=== PATIENT | female | born 1940 | race Caucasian/White ===

== ENCOUNTER 2019-07-06 08:49 | Outpatient (CLI) | payer MEDICARE, SELFPAY ==
[2019-07-14 20:57] LABS: Calprotectin, Stool 76.6 mcg/g
== END 2019-07-06 08:50 | disposition home or self-care (01) ==
LOC: ANHLAB 09:02
PROVIDERS: PCP Internal Medicine; Visit Provider Nurse Practitioner
DX: I10 Essential (primary) hypertension (principal); E78.00 Pure hypercholesterolemia, unspecified; E78.5 Hyperlipidemia, unspecified; E55.9 Vitamin D deficiency, unspecified
CPT/HCPCS: 83993

== ENCOUNTER 2019-10-02 12:47 | Outpatient (CLI) | payer MEDICARE, SELFPAY ==
[2019-10-02 13:16] LABS: Add Urine Microscopic? NO; Appearance Urine Clear (Clear); Bilirubin Urine Negative (Negative); Blood Urine Negative (Negative); Color Urine Yellow (Yellow); Glucose Urine UA Negative (Negative); Ketones Urine Negative (Negative); Leukocyte Esterase Ur Negative LEU/UL (Negative); Nitrate Urine Negative (Negative); Protein Urine Negative (Negative); Urobilinogen Urine Negative mg/dL (<2.0)
== END 2019-10-02 12:48 | disposition home or self-care (01) ==
PROVIDERS: PCP Internal Medicine; Visit Provider Internal Medicine
DX: R31.9 Hematuria, unspecified (principal)
CPT/HCPCS: 81003

== ENCOUNTER 2019-10-23 00:24 | Outpatient (CLI) | payer MEDICARE, SELFPAY ==
[2019-10-23 20:58] LABS: SARS-CoV-2 RNA PCR Negative
== END 2019-10-23 00:25 | disposition home or self-care (01) ==
LOC: ANHCOVIDDT 00:24
PROVIDERS: PCP Internal Medicine; Visit Provider Internal Medicine Gastroenterology
DX: Z01.818 Encounter for other preprocedural examination (principal); Z11.59 Encounter for screening for other viral diseases
CPT/HCPCS: 87635; C9803; U0003

== ENCOUNTER 2019-10-26 01:27 | Day surgery (SDC) | payer MEDICARE, SELFPAY ==
[2019-07-10 14:38] VITALS: BMI 24.4
[2019-10-21 11:10] VITALS: BMI 23.4
--- NOTE | 2019-10-26 08:52 | WPDANESEPPF ---
Anes - Initial Pre Proc Eval Procedure: Operation Date: 10/26/19 12:00 Proposed Procedures p Flexible Sigmoidoscopy - Adrian Adam DO Date/Time: 10/26/19 08:52 Surgeon: Adrian Adam DO Pre Op Diagnosis: ulcerative proctitis Patient Data Age: 79 Gender: F Height: 1.65 m Weight: 64 kg Allergies Allergy/AdvReac Type Severity Reaction Status Date / Time No Known Allergies Allergy Verified 10/21/19 11:15 Home Medications Medication Instructions Recorded Confirmed Type calcium carbonate-vitamin D3 1 tablet PO DAILY 03/12/19 07/10/19 History [Calcium 500 + D] cholecalciferol (vitamin D3) 1,000 unit PO DAILY 03/12/19 07/10/19 History [Vitamin D3] omega 0-tmj-fqd-fish oil [Fish Oil] 1 cap PO DAILY 03/12/19 07/10/19 History ropinirole 0.25 mg PO PRN PRN 03/12/19 07/10/19 History folic acid 1 mg PO DAILY #30 tablet 03/16/19 07/10/19 Rx mesalamine 4.8 gm PO DAILY #120 tablet 03/16/19 07/10/19 Rx multivitamin 1 tablet PO DAILY #90 tablet 03/16/19 07/10/19 Rx famotidine 20 mg tablet 20 mg PO BID #180 tablet 05/01/19 07/10/19 Rx brimonidine-timolol [Combigan] 0.2 - 0.5 drp OPHTHALMIC (EYE) 07/10/19 07/10/19 History DAILY lactobacillus combination no.8 3,000 mmu cells PO DAILY 07/10/19 07/10/19 History [Adult Probiotic] magnesium 250 mg PO DAILY 07/10/19 07/10/19 History Patient hx anesthesia problems: none Family hx anesthesia problems: none PMFSH Past Medical History Medical History (Updated 10/26/19 @ 08:53 by Tevin Diallo MD) Arthritis of shoulder Essential (primary) hypertension GERD (gastroesophageal reflux disease) Glaucoma Hematochezia Hx of adenomatous colonic polyps Osteopenia Overactive bladder Pure hypercholesterolemia Restless leg syndrome Right rotator cuff tendinitis Ulcerative proctitis Surgical History Surgical History History of partial hysterectomy Hx of appendectomy Hx of cholecystectomy Hx of colonoscopy Social History Social History Smoking status: Never smoker Alcohol intake: current Substance use: never Gender identity (if verbalized by the patient): Female Anes - Eval Final PreProcedure Day of Procedure 10/26/19 08:52 Patient weight: normal Heart: regular rate and rhythm Lungs: clear to auscultation and normal air movement Airway: Mallampati scale class II Neurological: alert and oriented Last oral intake: >/= 8 hours ASA classification: III Emergent: no Anesthetic plan: proceed Anesthesia type and monitoring: general GIVS Informed Consent: The patient's anesthetic plan and its attendant risks and benefits were discussed with the patient/family/POA. Questions were solicited and answers provided to the satisfaction of the patient/family/POA.
[2019-10-26 10:31] VITALS: BP 145/66; PULSE 66; RESP 18; TEMP 37.2; O2SAT 97
--- NOTE | 2019-10-26 12:15 | WPDGICN ---
GI Consult Note Consult date/time: 10/26/19 12:15 HPI: Reason for visit flexible sigmoidoscopy. This very pleasant lady seen in consultation request of the primary. Impression: Your very pleasant lady with a history of hematochezia and mucus per rectum. Previous colonoscopy revealed evidence of ulcerative colitis involving the sigmoid colon and rectum. She is here for follow-up flexible sigmoidoscopy. History adenomatous colon polyps. Per past medical history. Recommendation: Will proceed to flexible sigmoidoscopy. History: This very pleasant lady was evaluated previously with a colonoscopy. At that time she was having hematochezia and mucus per rectum. Colonoscopy revealed evidence of inflammatory changes of the sigmoid colon and rectum. Biopsies revealed changes compatible with ulcerative colitis. The patient was treated with oral mesalamine. Her symptoms improved. She has had a little hair loss, however her review of systems relatively unremarkable this time. She is here for flexible sigmoidoscopy to assess Healing. Physical examination: General: very pleasant patient in no acute distress. HEENT: Head was normocephalic sclerae is clear mouth without masses neck was supple. Heart: Rate rhythm regular without S3 or S4. Lungs: CTA. Abdomen: Soft with no guarding or rigidity. Bowel sounds were active. Neurologic: Cranial nerves 2 through 12 intact. No focal defects. No clonus. Musculoskeletal system: Revealed no joint tenderness or swelling no muscle atrophy. Extremities: Reveal no significant edema. Skin: Warm and dry with normal turgor. Mental status: intact. Patient is alert and oriented. Review of Systems Review of Systems: All systems reviewed & are unremarkable except as noted in HPI and below PMFSH Past Medical History Medical History (Updated 10/26/19 @ 11:56 by Adrian Adam DO) Arthritis of shoulder Essential (primary) hypertension GERD (gastroesophageal reflux disease) Glaucoma HLD (hyperlipidemia) Hx of adenomatous colonic polyps Low bone mass Overactive bladder RLS (restless legs syndrome) Ulcerative colitis Surgical History Surgical History History of partial hysterectomy Hx of appendectomy Hx of cholecystectomy Hx of colonoscopy Social History Social History Smoking status: Never smoker Alcohol intake: current Substance use: never Gender identity (if verbalized by the patient): Female Meds Home Medications and Allergies Home Medications Medication Instructions Recorded Confirmed Type calcium carbonate-vitamin D3 1 tablet PO DAILY 03/12/19 07/10/19 History [Calcium 500 + D] cholecalciferol (vitamin D3) 1,000 unit PO DAILY 03/12/19 07/10/19 History [Vitamin D3] omega 8-mpm-rae-fish oil [Fish Oil] 1 cap PO DAILY 03/12/19 07/10/19 History ropinirole 0.25 mg PO PRN PRN 03/12/19 07/10/19 History folic acid 1 mg PO DAILY #30 tablet 03/16/19 07/10/19 Rx mesalamine 4.8 gm PO DAILY #120 tablet 03/16/19 07/10/19 Rx multivitamin 1 tablet PO DAILY #90 tablet 03/16/19 07/10/19 Rx famotidine 20 mg tablet 20 mg PO BID #180 tablet 05/01/19 07/10/19 Rx brimonidine-timolol [Combigan] 0.2 - 0.5 drp OPHTHALMIC (EYE) 07/10/19 07/10/19 History DAILY lactobacillus combination no.8 3,000 mmu cells PO DAILY 07/10/19 07/10/19 History [Adult Probiotic] magnesium 250 mg PO DAILY 07/10/19 07/10/19 History Allergies Allergy/AdvReac Type Severity Reaction Status Date / Time No Known Allergies Allergy Verified 10/21/19 11:15 Vital Signs Vital Signs - 24 hr 10/26/19 10:31 Temperature 37.2 C Pulse Rate 66 Respiratory Rate 18 Blood Pressure 145/66 H Pulse Oximetry 97
[2019-10-26] MEDS: LACTATED RINGERS 1,000 ML 150 ML IV CONT (12:17)
[2019-10-26 12:35] VITALS: BP 112/67; PULSE 59; RESP 22; O2SAT 100
[2019-10-26 12:45] VITALS: BP 134/77; PULSE 58; RESP 22; O2SAT 100
[2019-10-26 12:55] VITALS: BP 156/82; PULSE 54; RESP 13; O2SAT 98
== END 2019-10-26 13:11 | disposition home or self-care (01) ==
PROVIDERS: PCP Internal Medicine; Visit Provider Internal Medicine Gastroenterology
PROC: 0DJD8ZZ Inspection of Lower Intestinal Tract, Via Natural or Artificial Opening Endoscopic (ICD-10-PCS; CPT 45330; principal; 2019-10-26 12:00)
DX: K51.90 Ulcerative colitis, unspecified, without complications (principal); E78.00 Pure hypercholesterolemia, unspecified; I10 Essential (primary) hypertension; K21.9 Gastro-esophageal reflux disease without esophagitis; H40.9 Unspecified glaucoma; G25.81 Restless legs syndrome
CPT/HCPCS: 45380; 88305; J7120

== ENCOUNTER 2019-11-17 14:04 | Outpatient (CLI) | payer MEDICARE, SELFPAY ==
--- NOTE | ~2019-11-17 | MM_ITS ---
EXAMINATION: MM screening [facility] BI w yoshi HISTORY: Screening mammogram TECHNIQUE: Craniocaudal and mediolateral oblique 3-D tomosynthesis images were obtained and synthetic 2-D images were generated. CAD analysis was submitted and interpreted. COMPARISON: Comparison to multiple prior studies sequentially, with oldest reviewed study dated 10/26. BREAST PARENCHYMAL COMPOSITION: There are scattered areas of fibroglandular density. FINDINGS: There is no evidence of suspicious mass, calcification, or architectural distortion to sugg est malignancy in either breast. There has been no suspicious interval change. IMPRESSION: 1. No mammographic evidence of malignancy. 2. Recommend routine screening mammography in one year. BI-RADS Category 1: Negative Reviewed, dictated and finalized at location A.
== END 2019-11-17 14:05 | disposition home or self-care (01) ==
LOC: ANHIMG 14:06
PROVIDERS: PCP Internal Medicine; Visit Provider Internal Medicine
DX: Z12.31 Encounter for screening mammogram for malignant neoplasm of breast (principal)
CPT/HCPCS: 77063; 77067

== ENCOUNTER 2020-01-19 09:23 | Outpatient (RCR) | payer MEDICARE, SELFPAY ==
[2020-01-19 09:36] VITALS: BMI 24.1
== END 2020-04-07 12:52 | disposition home or self-care (01) ==
LOC: ANHDMC 09:23
PROVIDERS: PCP Internal Medicine; Visit Provider Internal Medicine
DX: K52.9 Noninfective gastroenteritis and colitis, unspecified (principal); Z71.3 Dietary counseling and surveillance
CPT/HCPCS: 97802

== ENCOUNTER 2020-05-25 12:44 | Outpatient (CLI) | payer MEDICARE, SELFPAY ==
[2020-06-01 20:51] LABS: Calprotectin, Stool 54 mcg/g
== END 2020-05-25 12:45 | disposition home or self-care (01) ==
PROVIDERS: Family Provider Internal Medicine; PCP Internal Medicine; Visit Provider Internal Medicine Gastroenterology
DX: K52.9 Noninfective gastroenteritis and colitis, unspecified (principal)
CPT/HCPCS: 83993

== ENCOUNTER 2020-12-07 08:18 | Outpatient (CLI) | payer MEDICARE, SELFPAY ==
[2020-12-13 18:41] LABS: Calprotectin, Stool 72 mcg/g
== END 2020-12-07 08:19 | disposition home or self-care (01) ==
LOC: ANHLAB 08:22
PROVIDERS: PCP Internal Medicine; Visit Provider Physician Assistant Medical
DX: K51.20 Ulcerative (chronic) proctitis without complications (principal)
CPT/HCPCS: 83993

== ENCOUNTER 2020-12-07 09:16 | Outpatient (CLI) | payer MEDICARE, SELFPAY ==
--- NOTE | ~2020-12-07 | DEXA_ITS ---
Bone Density Report Name: Eli Rodriguez Age: 80 Sex: Female Ethnicity: White Date of : 1940 Indication: osteopenia; height loss; inflammatory bowel disease; hysterectomy; postmenopausal Referring Provider: ANNETTE BLANKENSHIP Study: Bone densitometry was performed. Exam Date: December 07, 2020 Accession number: [id number] Bone Density: Region BMD T-score Z-score Classification AP Spine (L1-L4) 0.906 -1.3 1.5 Osteopenia Femoral Neck (Left) 0.545 -2.7 -0.3 Osteoporosis Total Hip (Left) 0.691 -2.1 0.1 Osteopenia Total Hip Bilateral Avg 0.715 -1.9 0.3 Osteopenia Femoral Neck (Right) 0.593 -2.3 0.1 Osteopenia Total Hip (Right) 0.738 -1.7 0.5 Osteopenia World Health Organization criteria for BMD impression classify patients as: Normal (T-score at or above -1.0), Osteopenia (T-score between -1.0 and -2.5), or Osteoporosis (T-score at or below -2.5). 10-year Fracture Risk: FRAX not reported because: Some T-score for Spine Total or Hip Total or Femoral Neck at or below -2.5 Previous Exams: Region Exam Age BMD T-score BMD Change BMD Change Date g/cm2 vs Baseline vs Previous AP Spine(L1-L4) 12/07/2020 80 0.906 -1.3 0.017(1.9%)# 0.005(0.6%) 11/06/2018 78 0.901 -1.3 0.011(1.3%)# 0.015(1.7%)# 10/22/2012 72 0.886 -1.5 -0.004(-0.4%)# 0.023(2.7%)# 10/10/2010 70 0.863 -1.7 -0.027(-3.0%)* 0.010(1.1%) 09/06/2008 68 0.853 -1.8 -0.037(-4.1%)* -0.037(-4.1%)* 09/04/2006 66 0.890 -1.4 Total Hip(Left) 12/07/2020 80 0.691 -2.1 -0.115(-14.3%) -0.063(-8.4%)* 11/06/2018 78 0.754 -1.5 -0.052(-6.5%)# -0.200(-21.0%) 11/02/2016 76 0.955 0.1 0.148(18.4%)# 0.188(24.6%)* 10/27/2014 74 0.766 -1.4 -0.040(-5.0%)# 0.014(1.9%)# 10/22/2012 72 0.752 -1.6 -0.054(-6.7%)# -0.030(-3.9%)# 10/10/2010 70 0.783 -1.3 -0.024(-3.0%) -0.016(-2.0%) 09/06/2008 68 0.799 -1.2 -0.008(-1.0%) -0.008(-1.0%) 09/04/2006 66 0.806 -1.1 Total Hip(Right) 12/07/2020 80 0.738 -1.7 -0.082(-10.0%) -0.033(-4.3%)* 11/06/2018 78 0.771 -1.4 -0.049(-5.9%)# -0.115(-13.0%) 11/02/2016 76 0.886 -0.5 0.066(8.1%)# 0.107(13.7%)* 10/27/2014 74 0.779 -1.3 -0.040(-4.9%)# -0.036(-4.4%)# 10/22/2012 72 0.815 -1.0 -0.005(-0.6%)# 0.013(1.7%)# 10/10/2010 70 0.802 -1.2 -0.018(-2.2%) -0.014(-1.7%) 09/06/2008 68 0.816 -1.0 -0.004(-0.5%) -0.004(-0.5%) 09/04/2006 66 0.820 -1.0 *Denotes significance at 95% confidence level, LSC for AP Spine = 0.022 g/cm2, LSC for Total Hip = 0.027 g/cm2 Clin
--- NOTE | ~2020-12-07 | MM_ITS ---
EXAMINATION: MM screening [facility] BI w yoshi HISTORY: Screening TECHNIQUE: Craniocaudal and mediolateral oblique 3-D tomosynthesis images were obtained and synthetic 2-D images were generated. CAD analysis was submitted and interpreted. COMPARISON: Comparison to multiple prior studies sequentially, with oldest reviewed study dated 04/2014. BREAST PARENCHYMAL COMPOSITION: There are scattered areas of fibroglandular density. FINDINGS: There is no evidence of suspicious mass, calcification, or architectural distortion to sugg est malignancy in either breast. There has been no suspicious interval change. IMPRESSION: 1. No mammographic evidence of malignancy. 2. Recommend routine screening mammography in one year. BI-RADS Category 1: Negative Reviewed, dictated and finalized at location A.
== END 2020-12-07 09:17 | disposition home or self-care (01) ==
LOC: ANHIMG 09:17
PROVIDERS: PCP Internal Medicine; Visit Provider Internal Medicine
DX: Z12.31 Encounter for screening mammogram for malignant neoplasm of breast (principal); Z78.0 Asymptomatic menopausal state; M85.89 Other specified disorders of bone density and structure, multiple sites; M81.0 Age-related osteoporosis without current pathological fracture
CPT/HCPCS: 77063; 77067; 77080; 83993

== ENCOUNTER 2020-12-20 09:14 | Outpatient (CLI) | payer MEDICARE, SELFPAY ==
--- NOTE | ~2020-12-20 | CT_ITS ---
EXAMINATION: CT abdomen pelvis wo/w con EXAM DATE: 12/20/2020 10:13 INDICATION: HX of gross hematuria. History of bladder infections. TECHNIQUE: Spiral CT of the abdomen and pelvis was performed without contrast. The patient was then injected with small bolus intravenous Omnipaque 350, followed by delay of approximately 10 minutes to allow collecting system to opacify. A post contrast scan abdomen and pelvis was performed during inj ection of remaining contrast. A total of 130 cc intravenous contrast was administered. The dose-jasmin th product (DLP) for this examination was 753.14 mGy-cm. The exposure was tailored according to hamida ent size (auto mA exposure control), and iterative reconstruction (ASIR) was used as additional dose reduction technique. There is no prior study for comparison. FINDINGS: There is no hydronephrosis or nephrolithiasis. The kidneys enhance symmetrically. There a re no suspicious renal lesions. The calyces and opacified portions of ureters are unremarkable, with out filling defects or focal suspicious strictures. The bladder is unremarkable. The uterus is not identified and has likely been surgically resected. The liver, spleen, adrenal glands and pancreas are unremarkable. Gallbladder not identified, patient likely has had cholecystectomy. There is no retroperitoneal or pelvic lymphadenopathy. There is m ild to moderate scattered arteriosclerotic disease. Small left inguinal fat-containing hernia. The appendix is not positively visualized. There is no pericecal inflammatory change to suggest appe ndicitis. There is extensive sigmoid predominant colonic diverticulosis. There is no adjacent inflam matory change to suggest diverticulitis. The stomach and small bowel are unremarkable. There is expe cted amount of colonic stool. No free intraperitoneal gas. The heart is normal in size. There ar e no pericardial or pleural effusions. The lung bases are unremarkable. Mild thoracolumbar levoscol iosis. There are no osteoblastic or osteolytic lesions identified. IMPRESSION: 1. No suspicious genitourinary findings. 2. Colonic diverticulosis. 3. Small left inguinal hernia. Reviewed, dictated and finalized at location A.
[2020-12-20 09:55] LABS: Estimated Glomerular Filt Rate > 60
== END 2020-12-20 09:15 | disposition home or self-care (01) ==
PROVIDERS: PCP Internal Medicine; Visit Provider Nurse Practitioner Family
DX: R31.9 Hematuria, unspecified (principal); Z87.448 Personal history of other diseases of urinary system; K57.30 Diverticulosis of large intestine without perforation or abscess without bleeding; K40.90 Unilateral inguinal hernia, without obstruction or gangrene, not specified as recurrent
CPT/HCPCS: 74178; Q9967

== ENCOUNTER 2021-12-16 09:00 | Outpatient (CLI) | payer MEDICARE, SELFPAY ==
--- NOTE | ~2021-12-16 | MM_ITS ---
EXAMINATION: MM screening [facility] BI w yoshi HISTORY: Screening TECHNIQUE: Craniocaudal and mediolateral oblique 3-D tomosynthesis images were obtained and synthetic 2-D images were generated. CAD analysis was submitted and interpreted. COMPARISON: Comparison to multiple prior studies sequentially, with oldest reviewed study dated 08/2015. BREAST PARENCHYMAL COMPOSITION: There are scattered areas of fibroglandular density. FINDINGS: There is no evidence of suspicious mass, calcification, or architectural distortion to sugg est malignancy in either breast. There has been no suspicious interval change. IMPRESSION: 1. No mammographic evidence of malignancy. 2. Recommend routine screening mammography in one year. BI-RADS Category 1: Negative Reviewed, dictated and finalized at location A.
== END 2021-12-16 09:01 | disposition home or self-care (01) ==
PROVIDERS: PCP Internal Medicine; Visit Provider Internal Medicine
DX: Z12.31 Encounter for screening mammogram for malignant neoplasm of breast (principal)
CPT/HCPCS: 77063; 77067

== ENCOUNTER 2024-01-14 08:37 | Outpatient (RCR) | payer MEDICARE, SELFPAY ==
--- NOTE | 2024-01-14 09:53 | OPREHPOC ---
Outpatient Therapy Plan of Care This is a Multidisciplinary Plan of Care that may contain components documented by all disciplines (PT, OT, and ST.) PT Problem 1 PT Problem #1 Knowledge Deficit PT Goal 1 Goal / Goal Update 1. independent and compliant with HEP Target Visit 6 PT Problem 2 PT Problem #2 Impaired Strength PT Goal 1 Goal / Goal Update 1. 5/5 bilateral hip strength 2. 5/5 bilateral ankle strength Target Visit 12 PT Problem 3 PT Problem #3 Impaired Balance PT Goal 1 Goal / Goal Update 1. tinetti to display moderate fall risk or less 2. TUG to be completed in under 15 seconds 3. 5x sit to stand to be completed in under 15 seconds with or without UE's to push up from sitting Target Visit 12 PT Problem 4 PT Problem #4 Impaired Gait PT Goal 1 Goal / Goal Update 1. patient to ambulate with step through bilateral LE mechanics, complete foot clearance, and use of appropriate AD at all times. Target Visit 12 PT Problem 5 PT Problem #5 Impaired Functional Mobil PT Goal 1 Goal / Goal Update 1. patient to report confidence in home and community activities to improve quality of life. Target Visit 12
--- NOTE | 2024-01-14 09:54 | PTOPEVAL1 ---
Assessment and note entered by JT File, PT Evaluation Information Assessment Status Evaluation Diagnosis frequent falls Other ICD-10 Condition Codes ( R29.6 PT) Onset 12/03/23 Subjective Information patient reports she has scoliosis and walks different due to this. she reports she has not really had a falls, but fears she could have a fall due to her difficulty walking. she reports she feels she could stand to get stronger. she reports she has had some loss of balance. she reports when she loses her balance she is typically walking and sways/veers off to the side. she reports she does use a cane. she reports she uses the cane for community ambulation. she reports she does not use the cane in the home, but will use furniture to stabilize herself. she reports she does not have much pain, except for when doing repetitive activities such as vacuuming . Reported Pain Level Pain Score 0: Self Report Assessment PT Clinical Summary mrs. shearer is a pleasant 83 yo woman who presents to skilled PT services for evaluation and treatment of weakness and fear of falling. she has not yet had any falls, but reports she has had losses of balance that have nearly led to falls. she presents today with proximal LE weakness, abnormal gait mechanics, and high fall risk per the tinetti/5x sit to stand/TUG. she would benefit from continued skilled PT services to improve her objective/functional deficits and decrease her chance of falling and injury with home and community activities. Plan of Care Interventions Gait Training,Neuro Re-education,Patient/Caregiver Educati,Therapeutic Activities,Therapeutic Exercise PT Services Indicated Yes Treatment Frequency and 3x weekly for 12 visits Duration These treatments will address the objective and functional deficits as defined above. The patient will be advanced safely and appropriately in order for the patient to progress towards his/her prior level of function. Additional exercises will be introduced and as well as a comprehensive home exercise program upon discharge, if needed, ?to ensure carryover of functional gains achieved in the clinic. This treatment plan has been reviewed and agreement upon by the patient.
--- NOTE | 2024-02-19 11:56 | OPREHPOC ---
Outpatient Therapy Plan of Care This is a Multidisciplinary Plan of Care that may contain components documented by all disciplines (PT, OT, and ST.) PT Problem 1 PT Problem #1 Knowledge Deficit PT Goal 1 Goal / Goal Update 1. independent and compliant with HEP Target Visit 6 Progress Met PT Problem 2 PT Problem #2 Impaired Strength PT Goal 1 Goal / Goal Update 1. 5/5 bilateral hip strength 2. 5/5 bilateral ankle strength Target Visit 12 PT Goal 2 Goal / Goal Update Progress towards-continue PT Problem 3 PT Problem #3 Impaired Balance PT Goal 1 Goal / Goal Update 1. tinetti to display moderate fall risk or less 2. TUG to be completed in under 15 seconds 3. 5x sit to stand to be completed in under 15 seconds with or without UE's to push up from sitting Target Visit 12 Progress Partially Met PT Goal 2 Goal / Goal Update Progress towards-continue PT Problem 4 PT Problem #4 Impaired Gait PT Goal 1 Goal / Goal Update 1. patient to ambulate with step through bilateral LE mechanics, complete foot clearance, and use of appropriate AD at all times. Target Visit 12 PT Goal 2 Goal / Goal Update Progress towards-continue PT Problem 5 PT Problem #5 Impaired Functional Mobil PT Goal 1 Goal / Goal Update 1. patient to report confidence in home and community activities to improve quality of life. Target Visit 12 PT Goal 2 Goal / Goal Update Progress towards-continue
--- NOTE | 2024-02-19 11:56 | PTOPPROG ---
Assessment and note entered by Bhavani Arreguin, PT Evaluation Information Assessment Status Evaluation Diagnosis Frequent falls Other ICD-10 Condition Codes ( R29.6 PT) Onset 12/03/23 Subjective Information Eli Rodriguez reports she is improving overall since she started PT. She is noting improved strength and balance but she still has to use her cane. She denies falls since initiating PT. Assessment PT Clinical Summary Eli Rodriguez has completed 10 skilled PT visits. She is reporting improved strength since initiating PT and notes she can walk short distances without her cane but she usually uses her cane. She denies falls since initiating PT. She is demonstrating steady progress toward meeting her goals for increased balance, strength, gait, and functional mobility. She will continue to benefit from skilled PT to further improve her strength and balance. Plan of Care Interventions Gait Training,Neuro Re-education,Patient/Caregiver Educati,Therapeutic Activities,Therapeutic Exercise PT Services Indicated Yes Treatment Frequency and Continue per POC for 2 additional visits. Duration These treatments will address the objective and functional deficits as defined above. The patient will be advanced safely and appropriately in order for the patient to progress towards his/her prior level of function. Additional exercises will be introduced and as well as a comprehensive home exercise program upon discharge, if needed, ?to ensure carryover of functional gains achieved in the clinic. This treatment plan has been reviewed and agreement upon by the patient.
--- NOTE | 2024-02-26 11:09 | OPREHPOC ---
Outpatient Therapy Plan of Care This is a Multidisciplinary Plan of Care that may contain components documented by all disciplines (PT, OT, and ST.) PT Problem 1 PT Problem #1 Knowledge Deficit PT Goal 1 Goal / Goal Update 1. independent and compliant with HEP Target Visit 6 Progress Met PT Problem 2 PT Problem #2 Impaired Strength PT Goal 1 Goal / Goal Update 1. 5/5 bilateral hip strength 2. 5/5 bilateral ankle strength Target Visit 12 Progress Met PT Goal 2 Goal / Goal Update Progress towards-continue PT Problem 3 PT Problem #3 Impaired Balance PT Goal 1 Goal / Goal Update 1. tinetti to display moderate fall risk or less -met 2. TUG to be completed in under 15 seconds -not met (20 seconds) 3. 5x sit to stand to be completed in under 15 seconds with or without UE's to push up from sitting -not met (16 seconds) Target Visit 12 Progress Partially Met PT Goal 2 Goal / Goal Update Progress towards-continue PT Problem 4 PT Problem #4 Impaired Gait PT Goal 1 Goal / Goal Update 1. patient to ambulate with step through bilateral LE mechanics, complete foot clearance, and use of appropriate AD at all times. Target Visit 12 Progress Not Met PT Goal 2 Goal / Goal Update Progress towards-continue PT Problem 5 PT Problem #5 Impaired Functional Mobil PT Goal 1 Goal / Goal Update 1. patient to report confidence in home and community activities to improve quality of life. Target Visit 12 Progress Met PT Goal 2 Goal / Goal Update Progress towards-continue
--- NOTE | 2024-02-26 11:10 | PTOPDC ---
Assessment and note entered by Bhavani Arreguin, PT Evaluation Information Assessment Status Discharge Diagnosis Frequent Falls Other ICD-10 Condition Codes ( R29.6 PT) Onset 12/03/23 Subjective Information Eli Rodriguez reports she notes less pain in her lower back since she has been participating and PT and her balance is a little better as well. She has not had any falls since beginning PT. She does still feel off balance occasionally but feels it is mostly due to her age and she is comfortable using her cane when outside the home. Reported Pain Level Pain Score 0: Self Report Assessment PT Clinical Summary Eli Rodriguez has completed 12 skilled PT visits for frequent falls and decreased balance. She is reporting no falls and less back pain since initiating PT. She also reports confidence with using her cane when ambulating in the community. She objectively demonstrates improved strength, improved balance, and improved functional mobility . She will be discharged from skilled PT. Plan of Care PT Services Indicated No
== END 2024-02-26 11:15 | disposition home or self-care (01) ==
LOC: CHSPT 08:37
PROVIDERS: Visit Provider Family Medicine
DX: R29.6 Repeated falls (principal)
CPT/HCPCS: 97110; 97112; 97116; 97150; 97161; 97530; 97750